=== PATIENT | female | born 1970 | race Caucasian/White ===

== ENCOUNTER 2024-05-07 11:24 | Emergency (ER) | payer OTHER, SELFPAY ==
[2024-05-07 11:24] VITALS: BP 126/80; PULSE 82; RESP 14; TEMP 36.2; O2SAT 98; BMI 27.3
[2024-05-07] MEDS: morphine 10 MG/ML Syringe IM (13:19)
[2024-05-07] MEDS: Ondansetron ODT 4 MG Tablet PO (13:19)
--- NOTE | 2024-05-07 13:25 | EDS_ITS ---
HPI History of Present Illness Chief Complaint: Back Detail of Chief Complaint: Right upper back pain after moving. Informant: patient and family Onset/Context/Timing Onset: Days Context: Gradual Onset Injury: lifting Timing: Continuous Location: Thoracic Current Severity: Mild Maximum Severity: Moderate Worsened by: improves with Movement Relieved by: Nothing Associated Symptoms Associated Symptoms: Negative for Numbness, Tingling, Radiation to Right Leg, Radiation to Left Leg, Fever, Abdominal Pain, Dysuria, Unable to Ambulate, Unable to Transfer, Urinary Retention, Urinary Incontinence, Constipation or Fecal Incontinence Narrative Narrative: 53-year-old female recently moved from [place] to this area. They are moving a lot of furniture. She has had right upper back and shoulder pain for about a week. Denies any fall or trauma. Worse with movement. Denies any prior back surgery or neck surgery. Denies any weakness in her upper extremities. Prior similar symptoms: No Recent Illness/Hospitalization: No PFSH PFSH Home Medications ?Medication ?Instructions ?Recorded ?Last Taken ?Type metaxalone 800 mg tablet 800 mg PO TID PRN muscle pain 7 05/07/24 Unknown Rx days #21 tabs Allergy/AdvReac Type Severity Reaction Status Date / Time amoxicillin AdvReac Hives Verified 05/07/24 11:27 ciprofloxacin (From Cipro) AdvReac HIVES Verified 05/07/24 11:27 mushroom (mushrooms) AdvReac Hives Verified 05/07/24 11:27 ROS ROS ED ROS Narrative Denies recent illness. Constitutional Constitutional ED: Denies fever(s) Eyes Eyes: Denies blurry vision ENT ENT ED: Denies ear pain Cardiovascular Cardiovascular: Denies chest pain Respiratory/Chest Respiratory/Chest: Denies dyspnea Gastrointestinal Gastrointestinal: Denies abdominal pain Genitourinary Genitourinary ED: Denies dysuria or hematuria Musculoskeletal Musculoskeletal: Reports back pain; Denies arthralgias or myalgias Integumentary Denies abscess Neurologic Neurologic: Denies headache(s) Psychiatric Psychiatric: Denies anxiety or depression Endocrine Endocrinology: Denies cold intolerance Hematologic/Lymphatic Hematologic/Lymphatic: Denies easy bleeding Allergic/Immunologic Allergic/Immunologic ED: Denies mouth swelling EXAM Physical Exam Narrative Exam Narrative: Well-appearing middle-aged female. Vital signs stable afebrile. H EENT exam unremarkable. Neck nontender no lymphadenopathy. Lungs clear to auscultation bilaterally. Heart regular rhythm no murmur. Chest wall nontender. Abdomen so ft nontender. Moving all 4 extremities. Neurovascularly intact. Nontender no edema. Normal local company tanker driver strength. Right upper back thoracic side around her scapular and shoulder she is soft tissue tenderness consistent with myofascial strain and spasm. No bruising. No redness. No signs of trauma or deformity. Neurologically she is awake and alert with no focal motor or sensory deficits. Const Vital Signs: 05/07/24 11:24 Temperature 97.1 F L Temperature Source Temporal Pulse Rate 82 Respiratory Rate 14 Blood Pressure 126/80 H Blood Pressure Mean 95 Pulse Ox 98 Oxygen Delivery Method Room Air Positive well nourished and well developed; Negative for cachectic, contractures or unkempt General Appearance ED: well developed; Negative for unkempt, cachectic, contractures, NAD or pallor Nutritional Appearance: Negative for cachectic HEENT Reports moist mucous membranes Negative for trauma or tenderness Eyes PERRL and EOMs intact bilaterally Neck no lymphadenopathy, supple and no JVD Resp normal respiratory effort and clear to auscultation bilaterally Cardio regular rate, regular rhythm, S1 normal heart sound, S2 normal heart sound and no murmurs GI normal to inspection, nondistended, normoactive bowel sounds, soft to palpation, non-tender, non-distended and no masses Palpation: Negative for tender, guarding or rebound tenderness present Back/Spine no thoracic nor lumbar tenderness; Negative for normal to inspection Back/Spine Narrative: Soft tissue tenderness right upper back consistent with muscle spasm and strain. No spine tenderness. Thoracic Spine / Upper Back: paraspinal muscle tenderness Extremity normal to inspection and no clubbing, cyanosis or edema General Extremety ED: Negative for edema or tenderness General Extremity: Negative for edema Neuro oriented x3 and no sensory deficits noted Sensorium / Orientation: alert; Negative for confused, lethargic or stuporous Motor Exam: strength 5/5 throughout Psych mental status grossly normal Appearance: Negative for unkempt Attitude: No agitated Mood & Affect: Negative for depressed Skin no rashes or lesions noted and no wounds General Skin Exam: Negative for jaundice or pallor Lesions: No lesion noted Rashes: No rashes noted MDM MDM MDM Narrative Medical decision making narrative: 53-year-old female after moving has right upper back pain consistent myofascial strain and spasm. Time injection of morphine. Discharged home with a prescription for Skelaxin. Outpatient follow-up with primary care physician if not improving. Motrin for pain and inflammation. Discharge Plan Triage Chief Complaint: Back ED Provider: Monico Gabriel Dx/Rx/DC Orders Clinical Impression: Back pain, Back muscle spasm Instructions: ED Back Spasm, No Trauma Prescriptions: New metaxalone 800 mg tablet 800 mg PO TID PRN (Reason: muscle pain) 7 Days Qty: 21 0RF Referrals: Graham Pemberton MD [Med Staff - [employer]ist] - As Needed Activity Restrictions/Additional Instructions: Hot shower, warm bath, hot tub and massage. You have muscle spasm in your right back. Motrin and Tylenol for pain and inflammation. The muscle relaxant Skelaxin 3 times a day. It will take several days if you start feeling better. You were given an IM dose of morphine today. Do not drive today. Print Language: American Disposition Disposition: Home, Self Care
[2024-05-07 14:07] VITALS: BP 105/77; PULSE 67; RESP 16; TEMP 36.9; O2SAT 99
== END 2024-05-07 14:10 | disposition home or self-care (01) ==
PROVIDERS: Emergency Provider Emergency Medicine; Visit Provider Emergency Medicine
DX: M62.830 Muscle spasm of back (principal); M54.9 Dorsalgia, unspecified; X50.0XXA Overexertion from strenuous movement or load, initial encounter; Y93.E6 Activity, residential relocation
CPT/HCPCS: 96372; 99282

== ENCOUNTER 2024-05-22 15:21 | Emergency (ER) | payer OTHER, SELFPAY ==
[2024-05-22 15:22] VITALS: BP 128/84; PULSE 82; RESP 18; TEMP 36.4; O2SAT 98; BMI 27.6
[2024-05-22] MEDS: oxyCODONE 5 MG Tablet PO (17:19)
[2024-05-22] MEDS: Ketorolac 30 MG/ML Syringe IM (17:21)
[2024-05-22] MEDS: Orphenadrine 60 MG/2 ML Ampul IM (17:23)
--- NOTE | 2024-05-22 17:24 | EX.ED.DYSGE1 ---
HPI <FRANKI Donahue - Last Filed: 05/22/24 18:25> History of Present Illness Chief Complaint: Back Narrative Narrative: 53-year-old female with history of atrial fibrillation, hypertension hyperlipidemia who presents to the emergency department for pain to her upper back. Patient states [place], she has been moving a lot of boxes, she was seen here a couple weeks ago for something similar. Patient states she did a lot of work over the weekend, and after work today, she is having spasms to her upper back. She denies any shortness of breath, denies any chest pain. Denies any fall or traumatic injury. PFSH <FRANKI Donahue - Last Filed: 05/22/24 18:25> [facility] Home Medications ?Medication ?Instructions ?Recorded ?Last Taken ?Type metaxalone 800 mg tablet 800 mg PO TID PRN muscle pain 7 05/07/24 Unknown Rx days #21 tabs cyclobenzaprine 10 mg tablet 10 mg PO TID PRN Muscle Spasm #20 05/22/24 Unknown Rx TABLETS lidocaine 5 % topical patch 1 patch topical DAILY #15 ea 05/22/24 Unknown Rx (Lidocan III) naproxen 500 mg tablet (Naprosyn) 500 mg PO BID PRN pain #20 tabs 05/22/24 Unknown Rx oxycodone-acetaminophen 5 mg-325 1 tab PO Q8H PRN pain 3 days #8 05/22/24 Unknown Rx mg tablet (Percocet) tabs Allergy/AdvReac Type Severity Reaction Status Date / Time amoxicillin AdvReac Hives Verified 05/22/24 15:24 ciprofloxacin (From Cipro) AdvReac HIVES Verified 05/22/24 15:24 mushroom (mushrooms) AdvReac Hives Verified 05/22/24 15:24 Social History Smoking Status: Never smoker ROS <FRANKI Donahue - Last Filed: 05/22/24 18:25> ROS ED ROS Narrative Constitutional: Negative for fever, chills, weight loss, weakness Eyes: Negative for vision loss, vision change, double vision ENT: Negative for any sore throat, ear pain, congestion Cardiovascular: Negative for any chest pain, tightness, palpitations Respiratory: Negative for any cough, sputum production, hemoptysis, dyspnea, dyspnea on exertion, orthopnea Gastrointestinal: Negative for any abdominal pain, nausea, vomiting, diarrhea, constipation, blood in stool, blood in vomit : Negative for any urinary frequency, dysuria, retention, blood in urine Muscle skeletal: Negative for any neck pain. Positive for pain to the upper back Neurological: Negative for any headache, syncope, dizziness Skin: Negative for any rashes, itching, abrasions, lacerations Psychiatric: Negative for any depression, anxiety, stress, suicidal ideation, homicidal ideation Hematologic: Negative for any excessive bruising, easy bleeding EXAM <Vel Wallace NP-[place] - Last Filed: 05/22/24 18:25> Physical Exam Narrative Exam Narrative: Vital signs reviewed. Patient on my initial evaluation was laying on her right side, she was able to get up. Pain is out of proportion when touching any part of her upper back HEET: Head normocephalic atraumatic, TMs clear bilaterally. Posterior pharynx is clear, moist mucous membranes. Nares clear bilaterally. Neck: Supple with no lymphadenopathy or tenderness. No signs of meningismus. Cardiac: Regular rate and rhythm no murmurs gallops or rubs, equal peripheral pulses bilaterally. Respiratory: Lungs clear to auscultation bilaterally. No chest tenderness. Abdomen: Soft, nontender, nondistended. No abdominal bruit or pulsatile masses. No hepatosplenomegaly Extremities: No peripheral edema, no signs of gross trauma or deformity. Active full range of motion of all extremities. Neuro: Cranial nerves II through XII intact, no focal neurological deficits. Skin: Clean dry and intact with no rash, purpura, petechiae, vesicles or pustules. Backs/flank: No CVA tenderness, no midline spinal tenderness, no deformity. Pain to her upper back, just medial to her shoulder blades, no pain to the cervical thoracic spine midline. Full range of motion of upper extremities. Psych: Normal mood and affect. No SI, HI or acute psychosis. Const Vital Signs: 05/22/24 15:22 05/22/24 18:31 Temperature 97.5 F L 97.9 F Temperature Source Temporal Pulse Rate 82 86 Respiratory Rate 18 16 Blood Pressure 128/84 H 126/76 H Blood Pressure Mean 98 92 Pulse Ox 98 99 Oxygen Delivery Method Room Air <Dr. Jerson Squires DO - Last Filed: 05/22/24 18:36> Physical Exam Const Vital Signs: 05/22/24 15:22 05/22/24 18:31 Temperature 97.5 F L 97.9 F Temperature Source Temporal Pulse Rate 82 86 Respiratory Rate 18 16 Blood Pressure 128/84 H 126/76 H Blood Pressure Mean 98 92 Pulse Ox 98 99 Oxygen Delivery Method Room Air [facility] <FRANKI Donahue - Last Filed: 05/22/24 18:25> [facility] Treatment and Re-Evaluation :: Differential diagnosis includes however is not limited to: Muscle strain, community-acquired pneumonia, cervical strain, thoracic strain Patient appears generally well, vital signs are stable, patient is nontoxic-appearing. Patient presents to the [facility] for worsening pain to her upper back. Physical examination is consistent with muscle skeletal strain. Patient does state to have spasm as well. Physical examination shows no red flag signs. Patient will receive oral Percocet, IM Toradol, IM Norflex. On reevaluation, the patient was feeling better. At this time, patient be discharged home for muscle skeletal pain. Patient given a short course of pain medicine, naproxen, Flexeril, as well as some Lidoderm patches. She is instructed to follow-up outpatient and to continue to perform gentle stretching, ice and heat. She was given return precautions, all questions answered, stable for discharge. <Dr. Jerson Squires DO - Last Filed: 05/22/24 18:36> [facility] History & Record Review Discussion w/independent historian: Patient and Family Treatment and Re-Evaluation :: Differential diagnosis includes however is not limited to: Muscle strain, community-acquired pneumonia, cervical strain, thoracic strain Patient appears generally well, vital signs are stable, patient is nontoxic-appearing. Patient presents to the [facility] for worsening pain to her upper back. Physical examination is consistent with muscle skeletal strain. Patient does state to have spasm as well. Physical examination shows no red flag signs. Patient will receive oral Percocet, IM Toradol, IM Norflex. On reevaluation, the patient was feeling better. At this time, patient be discharged home for muscle skeletal pain. Patient given a short course of pain medicine, naproxen, Flexeril, as well as some Lidoderm patches. She is instructed to follow-up outpatient and to continue to perform gentle stretching, ice and heat. She was given return precautions, all questions answered, stable for discharge. I have personally performed a face to face assessment of the patient and have reviewed the KOLBY Note. I performed a substantive portion of the visit including all aspects of the following. My vaughn findings include: History is 53-year-old female presenting to the emergency room with upper back pain. Pain is worse with movement and touch. She has been moving from [place] to the area. She has been moving heavy boxes and furniture. She was seen previously in the emergency room and referred to primary care but is not been able to secure a primary care follow-up yet. No known direct trauma. Exam is upper back tenderness to palpation. No neurologic deficits no tissue texture changes to suggest underlying infection Medical Decison Making I believe this is muscular in nature. Patient is to rest and use heat we talked about various treatment modalities she can do at home and also through direct care professional. We can provide pain medication and muscle relaxants. Discharge Plan Triage Chief Complaint: Back ED Midlevel Provider: Vel Wallace ED Provider: Jerson Squires Dx/Rx/DC Orders Clinical Impression: Acute thoracic myofascial strain Instructions: ED Back Sprain/Strain Prescriptions: New naproxen [Naprosyn] 500 mg tablet 500 mg PO BID PRN (Reason: pain) Qty: 20 0RF oxycodone-acetaminophen [Percocet] 5-325 mg tablet 1 tab PO Q8H PRN (Reason: pain) 3 Days Qty: 8 0RF cyclobenzaprine 10 mg tablet 10 mg PO TID PRN (Reason: Muscle Spasm) Qty: 20 0RF lidocaine [Lidocan III] 5 % adhesive patch,medicated 1 patch topical DAILY Qty: 15 0RF Rx Instructions: leave on most painful area for up to 12 hrs No Action metaxalone 800 mg tablet 800 mg PO TID PRN (Reason: muscle pain) 7 Days Qty: 21 0RF Primary Care Provider: Care Physician,No Primary Referrals: Andreea Diez DC [Non-Staff -Ordering Privileges] - As Needed (For chiropractic medicine) Care Physician,No Primary [Primary Care Provider] - Activity Restrictions/Additional Instructions: Perform gentle stretching, ice and heat. Print Language: Kazakh Disposition Disposition: Home, Self Care Discharge Date/Time: 05/22/24 18:31
[2024-05-22 18:31] VITALS: BP 126/76; PULSE 86; RESP 16; TEMP 36.6; O2SAT 99
== END 2024-05-22 18:31 | disposition home or self-care (01) ==
PROVIDERS: Emergency Provider Emergency Medicine; Visit Provider Emergency Medicine
DX: S29.019A Strain of muscle and tendon of unspecified wall of thorax, initial encounter (principal); I48.91 Unspecified atrial fibrillation; I10 Essential (primary) hypertension; E78.5 Hyperlipidemia, unspecified; X50.0XXA Overexertion from strenuous movement or load, initial encounter
CPT/HCPCS: 96372; 99283

== ENCOUNTER 2024-08-04 15:10 | Emergency (ER) | payer OTHER, SELFPAY ==
[2024-08-04 15:10] VITALS: BP 123/73; PULSE 89; RESP 16; TEMP 36.9; O2SAT 100; BMI 26.1
--- NOTE | 2024-08-04 15:47 | ED.VIS.BACK ---
HPI History of Present Illness Chief Complaint: Back Onset/Context/Timing Onset: Month(s) Context: Gradual Onset Timing: Continuous Quality: Sharp, Aching and Burning Location: Thoracic Worsened by: improves with Nothing Relieved by: Nothing Associated Symptoms Associated Symptoms: Numbness, Tingling and Abdominal Pain; Negative for Radiation to Right Leg, Radiation to Left Leg, Fever, Dysuria, Unable to Ambulate, Unable to Transfer, Urinary Retention, Urinary Incontinence, Constipation or Fecal Incontinence Narrative Narrative: The patient presents with back pain that has been getting worse over the past month. Patient states she was recently diagnosed with lung cancer with metastasis to the bone. Patient states she was told she had a metastatic lesion in her thoracic area. Patient describes her pain as sharp, aching, and burning. Patient states it is over the right mid thoracic area. Patient states it is better when she is able to curl up into a ball. Patient admits to some numbness and tingling into her fingers. Patient denies any weakness. Patient denies any radiation of the pain into her legs. Patient states the pain does radiate into her abdomen. Patient denies any fevers or chills. Patient admits to some nausea but denies any vomiting. Patient denies any bowel or bladder changes. Patient denies any saddle anesthesia. Patient had an MRI yesterday and is scheduled for a PET scan tomorrow. [facility] Medical History (Updated 08/04/24 @ 18:[address] Kareem Aranda, DO) Atrial fibrillation Fibromyalgia Osteoarthritis Lung cancer metastatic to bone Home Medications ?Medication ?Instructions ?Recorded ?Last Taken ?Type metaxalone 800 mg tablet 800 mg PO TID PRN muscle pain 7 05/07/24 Unknown Rx days #21 tabs cyclobenzaprine 10 mg tablet 10 mg PO TID PRN Muscle Spasm #20 05/22/24 Unknown Rx TABLETS lidocaine 5 % topical patch 1 patch topical DAILY #15 ea 05/22/24 Unknown Rx (Lidocan III) naproxen 500 mg tablet (Naprosyn) 500 mg PO BID PRN pain #20 tabs 05/22/24 Unknown Rx oxycodone-acetaminophen 5 mg-325 1 tab PO Q8H PRN pain 3 days #8 05/22/24 Unknown Rx mg tablet (Percocet) tabs oxycodone-acetaminophen 5 mg-325 1 tab PO Q8H PRN pain 3 days #10 08/04/24 Unknown Rx mg tablet (Percocet) tabs Allergy/AdvReac Type Severity Reaction Status Date / Time amoxicillin AdvReac Hives Verified 08/04/24 15:10 ciprofloxacin (From Cipro) AdvReac HIVES Verified 08/04/24 15:10 mushroom (mushrooms) AdvReac Hives Verified 08/04/24 15:10 Surgical History History of cardiac ablation for atrial fibrillation Hx of gastric bypass Hx of cholecystectomy History of hysterectomy Social History Smoking Status: Current some day smoker tobacco type: cigarettes and smokeless tobacco ROS ROS ED Constitutional Constitutional ED: Denies chills or fever(s) Eyes Eyes: Reports blurry vision; Denies change in vision ENT ENT ED: Denies rhinorrhea or sore throat Cardiovascular Cardiovascular: Denies chest pain or palpitations Respiratory/Chest Respiratory/Chest: Reports cough; Denies dyspnea Gastrointestinal Gastrointestinal: Reports abdominal pain and nausea; Denies diarrhea, melena or vomiting Genitourinary Genitourinary ED: Denies dysuria or hematuria Musculoskeletal Musculoskeletal: Reports back pain; Denies neck pain Integumentary Denies abscess or rash Neurologic Neurologic: Denies headache(s) or weakness Allergic/Immunologic Allergic/Immunologic ED: Denies mouth swelling or urticaria EXAM Physical Exam Const Vital Signs: 08/04/24 15:10 Temperature 98.5 F Temperature Source Oral Pulse Rate 89 Respiratory Rate 16 Blood Pressure 123/73 H Blood Pressure Mean 89 Pulse Ox 100 Oxygen Delivery Method Room Air Positive well nourished and well developed General Appearance ED: well developed and NAD HEENT Reports moist mucous membranes Neck supple and no JVD Resp normal respiratory effort and clear to auscultation bilaterally Cardio regular rate and regular rhythm GI soft to palpation Palpation: tender RLQ and RUQ; Negative for guarding or rebound tenderness present Back/Spine Back/Spine Narrative: There is tenderness over the right mid thoracic paraspinal area. There is no bony crepitance or step-off noted. There is no midline tenderness. Thoracic Spine / Upper Back: paraspinal muscle tenderness right Extremity normal to inspection General Extremety ED: Negative for edema or tenderness General Extremity: Negative for edema Neuro oriented x3 and no sensory deficits noted Sensorium / Orientation: alert Motor Exam: strength 5/5 throughout Psych mental status grossly normal Skin no rashes or lesions noted MDM MDM MDM Narrative Medical decision making narrative: Differential diagnosis includes metastatic disease, occult fracture, pathologic fracture, pneumonia, pneumothorax, cardiac dysrhythmia, cardiac ischemia, electrolyte abnormality, and muscle strain. EKG will be obtained to assess for cardiac dysrhythmia and cardiac ischemia. CT scan of the chest, abdomen, and pelvis will be obtained to assess for metastatic disease, bowel obstruction, and colitis. CBC will be obtained to assess for leukocytosis and anemia. Comprehensive metabolic profile will be obtained to assess for hepatic function, renal function, and electrolyte abnormality. Urinalysis will be obtained to assess for urinary tract infection and hematuria. Lab Data Attestation: I reviewed the patient's lab results. Lab results narrative: CBC was reviewed. There is a slight anemia with a hemoglobin of 11.9 and hematocrit of 36.8. The remainder is within normal limits. Comprehensive metabolic profile was reviewed and was essentially within normal limits. Lipase reviewed and was elevated at 234. Urinalysis was reviewed. There is no evidence of urinary tract infection or hematuria. Labs: Laboratory Results - last 24 hr 08/04/24 16:17 WBC 7.0 RBC 4.20 Hgb 11.9 L Hct 36.8 L MCV 87.6 MCH 28.3 MCHC 32.3 RDW Std Deviation 41.8 RDW Coeff of Freddy 13.0 Plt Count 300 MPV 9.6 Sodium 138 Potassium 3.7 Chloride 105 Carbon Dioxide 29.0 Anion Gap 4 L BUN 20 H Creatinine 0.58 Estim Creat Clear Calc 112.41 Est GFR (MDRD) Af Amer 139 Est GFR (MDRD) Non-Af 115 BUN/Creatinine Ratio 34.5 H Glucose 88 Calcium 9.1 Total Bilirubin 0.30 AST 11 L ALT 9 L Alkaline Phosphatase 114 Total Protein 6.9 Albumin 3.1 L Globulin 3.8 Albumin/Globulin Ratio 0.8 L Lipase 234 H Urine Color Yellow Urine Clarity Sl. Cloudy Urine pH 6.0 Ur Specific [place] 1.020 Urine Protein 30 H Urine Glucose (UA) Normal Urine Ketones 5 H Urine Occult Blood Negative Urine Nitrite Negative Urine Bilirubin 1 H Urine Urobilinogen 1 H Ur Leukocyte Esterase 25 H Urine RBC 0-5 SEEN Urine WBC 0-5 SEEN Ur Squamous Epith Cells 0-5 SEEN Urine Bacteria 1+ Urine Mucus 3+ Radiography Diagnostic Testing: Clinical Impression(s) from Imaging Studies Chest/Abdomen/Pelvis CT 08/04/24 15:59 IMPRESSION: Slightly fluid distended left-sided small intestine. Partial or intermittent obstruction cannot be excluded. Lytic lesions of T8 and T9. Mesenteric adenitis. Electronically Signed: Hari Page DO at 17:25 EST Reading Location ID and State: [facility] / [place] Tel [phone], Service support , CT scan of the chest, abdomen, and pelvis was obtained. There is a slightly distended left-sided small intestine. There are lytic lesions of T8 and T9. There is evidence of mesenteric adenitis. There is no free air or free fluid. This was interpreted by the radiologist and was also independently reviewed by myself. EKG Initial EKG: Attestation: I personally reviewed and interpreted this EKG as follows: Interpretation: Sinus Rhythm (77) and No Acute Injury Pattern Comments: EKG was obtained. On my independent interpretation, it showed a normal sinus rhythm with a rate of 77. [place] interval, QRS interval, and QTc intervals were all normal. [place] was normal. There are no acute ST or T wave changes. Prior EKG tracings: not available for review Prior: No Prior Treatment and Re-Evaluation Narrative: Patient was given IV fluids, Zofran, and morphine. Patient was given repeat doses of Dilaudid. They did recommend admission to the hospital. Patient states she wants to go home. Patient states she has a PET scan scheduled for tomorrow and does not want to miss that. Patient is requesting to be discharged home. Patient was advised to return to the emergency department if worse in any way. Patient was instructed to stay on a clear liquid diet. Patient was given a prescription for a short course of Percocet. Patient was instructed to follow-up with her PET scan tomorrow. Patient was advised that her pain could get worse. Patient understands and is agreeable with the plan. All questions were answered. Discharge Plan Triage Chief Complaint: Back ED Provider: Kareem Aranda Dx/Rx/DC Orders Clinical Impression: Acute pancreatitis, Lung cancer metastatic to bone, Fibromyalgia Instructions: ED Pancreatitis Prescriptions: New oxycodone-acetaminophen [Percocet] 5-325 mg tablet 1 tab PO Q8H PRN (Reason: pain) 3 Days Qty: 10 0RF No Action naproxen [Naprosyn] 500 mg tablet 500 mg PO BID PRN (Reason: pain) Qty: 20 0RF oxycodone-acetaminophen [Percocet] 5-325 mg tablet 1 tab PO Q8H PRN (Reason: pain) 3 Days Qty: 8 0RF cyclobenzaprine 10 mg tablet 10 mg PO TID PRN (Reason: Muscle Spasm) Qty: 20 0RF lidocaine [Lidocan III] 5 % adhesive patch,medicated 1 patch topical DAILY Qty: 15 0RF Rx Instructions: leave on most painful area for up to 12 hrs metaxalone 800 mg tablet 800 mg PO TID PRN (Reason: muscle pain) 7 Days Qty: 21 0RF Primary Care Provider: Rosalba Soto Referrals: Rosalba Soto MD [Primary Care Provider] - 3-5 Days Print Language: Macedonian Disposition Disposition: Home, Self Care
--- NOTE | 2024-08-04 15:59 | EKG12_ITS ---
Test Reason : BACK Blood Pressure : */* mmHG Vent. Rate : 77 BPM Atrial Rate : 77 BPM P-R Int : 148 ms QRS Dur : 88 ms QT Int : 378 ms P-R-T Axes : 55 46 39 degrees QTcB Int : 427 ms Normal sinus rhythm Normal ECG Confirmed by ABDIAZIZ VELÁSQUEZ, MICHAEL ([id number]), food editor ARRON ROWELL ([id number]) on 08/07/2024 6:38:21 AM Referred By: Confirmed By: MICHAEL FREED MD
--- NOTE | 2024-08-04 15:59 | CT_ITS ---
STUDY: CT CHEST, ABDOMEN T PELVIS WITH CONTRAST REASON FOR EXAM: Female, 53 years old. Back pain, abdominal pain. NEW DIAGNOSIS OF LUNG CANCER WITH BONE METS. PRIOR MARICARMEN,HYSTER,GASTRIC BYPASS RADIATION DOSAGE (If Supplied By Facility): CTDIvol = ( 15.08 ) mGy, DLP = ( 1334.75 ) mGycm TECHNIQUE: Transaxial imaging was performed following intravenous administration of IV 100mL Isovue-300. The protocol utilizes one or more of the following dose reduction techniques: automated exposure control, adjustment of mA and/or kV according to patient size,and/or use of iterative reconstruction technique. COMPARISON: FINDINGS: CHEST Right pulmonary calcified granuloma. Probable focal scarring in the right middle lobe. There is no demonstrated pleural abnormality. Normal heart and pericardium. Granulomatous calcifications in the mediastinum and the hilar regions. Normal unenhanced pulmonary arteries. Normal aorta arch and descending thoracic aorta. Lytic lesions of T8 and T9. ABDOMEN Small left hepatic cyst in the liver. Status post cholecystectomy. Dilatation of the biliary system. Slightly enlarged spleen with a 1 cm hypoattenuated nodule. Normal pancreas. There are slightly prominent mesenteric nodes suggesting mesenteric adenitis. There is slight prominence of the left adrenal gland with possible underlying nodule. Normal right kidney. Normal left kidney. Prior surgery of the stomach. Slightly fluid distended left-sided small intestine. Partial or intermittent obstruction cannot be excluded. Fecal retention in the colon. The appendix is visualized and appears normal. Normal abdominal aorta. Normal inferior vena cava. Normal retroperitoneum. Normal abdominal wall. Normal osseous structures. PELVIS Normal urinary bladder. Normal visualized small intestine. Normal visualized colon. There is no pelvic fluid. There is no pelvic lymphadenopathy or mass lesion. Normal visualized pelvic arteries. CT/CT Chest, Abd, Pel w/Contrast IMPRESSION: Slightly fluid distended left-sided small intestine. Partial or intermittent obstruction cannot be excluded. Lytic lesions of T8 and T9. Mesenteric adenitis. Electronically Signed: Hari Page DO at 17:25 EST ,
[2024-08-04] MEDS: Ondansetron 4 MG/2 ML Vial IV (16:22)
[2024-08-04] MEDS: Morphine 4 MG/ML Syringe IV (16:23)
[2024-08-04] MEDS: 0.9% Normal Saline (1000mL) 1,000 ML 1000 ML IV (16:25)
[2024-08-04 16:34] LABS: Hematocrit 36.8 % (37-47); Hemoglobin 11.9 g/dL (12.0-15.0); Mean Corp Hgb Conc 32.3 g/dL (32-36); Mean Corpuscular Hgb 28.3 pg (27.0-32.0); Mean Corpuscular Volume 87.6 fL (81-99); Mean Platelet Vol. 9.6 fl (6.2-12.0); Platelet Count 300 K/mm3 (150-450); RBC Distribution Width SD 41.8 fl (35.1-43.9)
[2024-08-04 16:36] LABS: Color, Urine Yellow (Yellow); Glucose, Dipstick Normal (Normal); Ketone-Dipstick 5 mg/dl (Negative); Leukocyte Esterase-Dipstick 25 /ul (Negative); Nitrite-Dipstick Negative (Negative); Occult Blood-Urine Negative /ul (Negative); Protein-Dipstick 30 mg/dl (Negative); Urine Clarity Sl. Cloudy (Clear); Urine Urobilinogen 1 mg/dl (Normal)
[2024-08-04 16:38] LABS: Urine Bilirubin Dipstick 1 mg/dL (Negative)
[2024-08-04 16:46] LABS: Bacteria 1+ /hpf (None Seen); Mucous, Urine 3+ /hpf (<or=2+); Red Blood Cells-Urine 0-5 SEEN /hpf (0-5); Squamous Epithelial Cells - UA 0-5 SEEN /hpf (5-10); White Blood Cells 0-5 SEEN /hpf (0-5)
[2024-08-04 16:53] LABS: ALB/GLOB Ratio 0.8 RATIO (0.9-2.4); AST(SGOT) 11 U/L (15-37); Alanine Aminotransfer ALT/SGPT 9 U/L (13-56); Albumin, Serum 3.1 g/dL (3.2-5.0); Alkaline Phosphatase 114 U/L (45-117); Anion Gap 4 (5-15); BUN 20 mg/dL (7-18); BUN/Creat Ratio 34.5 RATIO (10-20); Calcium,Total 9.1 mg/dL (8.5-10.1); Chloride 105 mmol/L (98-107); Creatinine, Serum 0.58 mg/dL (0.55-1.02); EST Glomerular Filtration Rate 115 mL/min (>60); Est Glom Filt Rate - Afr Amer 139 mL/min (>60); Estimated Creatinine Clearance 112.41 ml/min; Globulin 3.8 g/dL (2.2-4.2); Glucose 88 mg/dL (74-106); Lipase 234 U/L (13-75); Potassium 3.7 mmol/L (3.5-5.1); Protein, Total 6.9 g/dL (6.4-8.2); Sodium Level 138 mmol/L (136-145)
[2024-08-04] MEDS: HYDROmorphone 1 MG/ML Syringe 0.5 MG IV ×2 (17:24→18:18)
[2024-08-04 18:35] VITALS: PULSE 88; RESP 16; O2SAT 98
== END 2024-08-04 18:47 | disposition home or self-care (01) ==
PROVIDERS: Emergency Provider Emergency Medicine; PCP Internal Medicine; Visit Provider Emergency Medicine
DX: K85.90 Acute pancreatitis without necrosis or infection, unspecified (principal); C79.51 Secondary malignant neoplasm of bone; C34.90 Malignant neoplasm of unspecified part of unspecified bronchus or lung; R11.0 Nausea; M79.7 Fibromyalgia; Z90.710 Acquired absence of both cervix and uterus; F17.210 Nicotine dependence, cigarettes, uncomplicated; Z90.49 Acquired absence of other specified parts of digestive tract; Z98.84 Bariatric surgery status
CPT/HCPCS: 71260; 74177; 80053; 81001; 83690; 85027; 93005; 96361; 96374; 96375; 96376; 99284; Q9967; A4216; J2405

== ENCOUNTER 2024-08-23 10:57 | Emergency (ER) | payer BC, SELFPAY ==
[2024-08-23] VITALS (7 sets, daily range): BP systolic 120–156; BP diastolic 52–85; PULSE 72–92; RESP 14–18; TEMP 36.2–36.6; O2SAT 98–100; BMI 26.9
--- NOTE | 2024-08-23 11:11 | EKG12_ITS ---
Test Reason : CP Blood Pressure : */* mmHG Vent. Rate : 85 BPM Atrial Rate : 85 BPM P-R Int : 142 ms QRS Dur : 92 ms QT Int : 378 ms P-R-T Axes : 76 60 67 degrees QTcB Int : 449 ms Normal sinus rhythm Normal ECG Confirmed by Emmanuel Brizuela ([id number]), book editor HAI PANG ([id number]) on 08/24/2024 10:19:16 AM Referred By: RAJIV Confirmed By: Emmanuel Brizuela
--- NOTE | 2024-08-23 11:18 | CT_ITS ---
STUDY: CTA CHEST REASON FOR EXAM: Female, 53 years old. CP w/ Lung ca hx w/ mets RADIATION DOSAGE (If Supplied By Facility): CTDIvol = ( 7.09 ) mGy, DLP = ( 218.68 ) mGycm TECHNIQUE: The examination was performed with the intravenous administration of IV 100mL Isovue-370. Post-processing of the angiographic images was performed, with multiplanar reformation and 3D reconstruction. Individualized dose optimization techniques were used for this CT. COMPARISON: Comparison is made with prior study dated August 04, 2024 FINDINGS: Several intraluminal filling defects are seen in the branches of the right middle lobe pulmonary artery in keeping with pulmonary embolism. Normal thoracic aorta and visualized great vessels. There is no demonstrated aortic dissection. Normal heart and pericardium. Mediastinal lymphadenopathy. Normal hilar regions. Normal visualized trachea and bronchi. Emphysematous changes. There is a 1.5 cm bulla in the anterior lateral aspect of the right upper lobe. There is a 1.2 cm x 1 cm nodule in the anterior aspect of the right upper lobe as seen on axial image #140. Calcified granuloma in the lateral aspect of the right middle lobe. Focal scarring at the lung bases. Normal pulmonary parenchyma. Normal pleura. Normal chest wall structures. Lytic destruction of the anterior aspect of the T8 and T9 vertebrae consistent with metastasis. Small gallstones are seen along the dependent portion of the gallbladder lumen. Findings suggestive of a para-aortic lymphadenopathy in the upper abdomen. CT/CTA Chest W/WO Contrast IMPRESSION: Pulmonary emboli in branches of the right middle lobe pulmonary artery as described. 1.2 cm x 1 cm nodule in the anterior aspect of the right upper lobe in keeping with the neoplastic process. Small gallstones. Destruction of the T8 and T9 vertebrae. Electronically Signed: Familia Shah MD at 12:16 EST ,
--- NOTE | 2024-08-23 11:20 | ED.VIS.CHEST ---
HPI History of Present Illness Chief Complaint: Chest Pain Informant: patient Onset/Context/Timing Onset: Days Activity at onset: gradual Timing: Continuous (Feels like someone is ripping my ribs out.) Quality: Positive for Aching Location: Right Chest and Left Chest Current Severity: Moderate Maximum Severity: Moderate Worsened By: Nothing Relieved By: Nothing Associated Symptoms: Positive for Cough; Negative for Nausea, Vomiting, Diaphoresis, Dyspnea, Fever, Lightheadedness, Acid Reflux or Palpitations Narrative Narrative: 53-year-old female history of 1 seizure with bony mets for which she is being treated [facility]. For the last 5 months or so she has lived in this area and is trying to transfer to a new oncologist because it is a 4-[address] to [facility]. She also has a history of A-fib. She is on no blood thinners. States that she has had chest pain since Wednesday. She has chronic chest pain due to bony mets. States it is worse. Denies any hemoptysis. No history of DVT or PE. No change or worsening of shortness of breath. Denies any leg pain or swelling. No cardiac history. Prior Similar Symptoms: Yes Recent Illness/Hospitalization: No CVD Risk Factors: Negative for Diabetes PE Risk Factors: Positive for Cancer; Negative for Recent Travel/Surgery, Recent Immobilization, Prior DVT or PE or OCP + Smoking + >/=35 TAD Risk Factors: Negative for Marfan's Syndrome [facility] Medical History Atrial fibrillation Fibromyalgia Osteoarthritis Lung cancer metastatic to bone Home Medications ?Medication ?Instructions ?Recorded ?Last Taken ?Type metaxalone 800 mg tablet 800 mg PO TID PRN muscle pain 7 05/07/24 Unknown Rx days #21 tabs oxycodone-acetaminophen 5 mg-325 1 tab PO Q8H PRN pain 3 days #8 05/22/24 Unknown Rx mg tablet (Percocet) tabs oxycodone-acetaminophen 5 mg-325 1 tab PO Q8H PRN pain 3 days #10 08/04/24 Unknown Rx mg tablet (Percocet) tabs apixaban 5 mg (74 tabs) tablets in See Rx Instructions .Route 08/23/24 Unknown Rx a dose pack (Eliquis DVT-PE Treat .COMPLEX #74 tabs 30D Start) diltiazem HCl 120 mg 120 mg PO DAILY 08/23/24 Unknown History capsule,extended release 24 hr duloxetine 60 mg capsule,delayed 60 mg PO DAILY 08/23/24 Unknown History release fluticasone fur. 200 mcg-umeclid 1 ea inhalation DAILY 08/23/24 Unknown History 62.5 mcg-vilant 25 mcg inhalat.powder (Trelegy Ellipta) folic acid 1 mg tablet 1 mg PO DAILY 08/23/24 Unknown History hydroxyzine HCl 50 mg tablet 50 mg PO QHS 08/23/24 Unknown History nicotine (polacrilex) 4 mg buccal 4 mg PO Q8H 08/23/24 Unknown History lozenge nicotine 14 mg/24 hr daily 1 patch topical DAILY 08/23/24 Unknown History transdermal patch nicotine 21 mg/24 hr daily 1 patch topical DAILY 08/23/24 Unknown History transdermal patch olanzapine 10 mg tablet 10 mg PO QHS 08/23/24 Unknown History ondansetron HCl 8 mg tablet 8 mg PO TID 08/23/24 Unknown History oxycodone-acetaminophen 5 mg-325 1 tab PO Q6H PRN pain 4 days #20 08/23/24 Unknown Rx mg tablet (Percocet) tabs prazosin 1 mg capsule 1 mg PO QHS 08/23/24 Unknown History prazosin 2 mg capsule 2 mg PO QHS 08/23/24 Unknown History pregabalin 50 mg capsule 50 mg PO BID 08/23/24 Unknown History tizanidine 4 mg tablet 4 mg PO BID 08/23/24 Unknown History trazodone 150 mg tablet 150 mg PO QHS 08/23/24 Unknown History varenicline tartrate 0.5 mg (11)-1 1 tab PO 08/23/24 Unknown History mg (42) tablets in a dose pack Allergy/AdvReac Type Severity Reaction Status Date / Time amoxicillin AdvReac Hives Verified 08/23/24 11:35 ciprofloxacin (From Cipro) AdvReac HIVES Verified 08/23/24 11:35 mushroom (mushrooms) AdvReac Hives Verified 08/23/24 11:35 Surgical History History of cardiac ablation for atrial fibrillation Hx of gastric bypass Hx of cholecystectomy History of hysterectomy Social History (Updated 01/08/25 @ 11:30 by Mariela Daley) household members: none Smoking Status: Current some day smoker tobacco type: cigarettes and smokeless tobacco ROS ROS ED ROS Narrative Chest pain. Chronic cough. Denies hemoptysis. Denies shortness of breath. Constitutional Constitutional ED: Denies chills or fever(s) Eyes Eyes: Reports none ENT ENT ED: Denies ear pain Cardiovascular Cardiovascular: Denies palpitations or racing heartbeat Respiratory/Chest Respiratory/Chest: Reports cough; Denies dyspnea or dyspnea on exertion Gastrointestinal Gastrointestinal: Denies abdominal pain, constipation, diarrhea, melena, nausea or vomiting Genitourinary Genitourinary ED: Denies dysuria or hematuria Musculoskeletal Musculoskeletal: Denies arthralgias or back pain Integumentary Denies abscess or Abrasions Neurologic Neurologic: Denies headache(s), paresthesias or weakness Psychiatric Psychiatric: Denies anxiety or depression Endocrine Endocrinology: Denies cold intolerance Hematologic/Lymphatic Hematologic/Lymphatic: Denies easy bleeding Allergic/Immunologic Allergic/Immunologic ED: Denies mouth swelling, tongue swelling or urticaria EXAM Physical Exam Narrative Exam Narrative: 53-year-old female no acute distress. Vital signs are stable afebrile. Pulse ox 9 9% on room air no signs hypoxia. No tachycardia. No dyspnea. H EENT exam unremarkable. Mytrex members. Neck nontender no JVD. Lungs clear to auscultation bilaterally. Wet cough. No rales or rhonchi. Currently no wheezing. Heart regular rhythm rate about 90 no murmur. Chest wall and ribs currently no reproducible pain. Abdomen soft, nontender, nondistended, normal bowel sounds without peritoneal signs. Moving all 4 extremities. Bilateral 5/5 steamer gum candy strength. Dorsi plantarflexion intact. Calves are nontender without edema or cords. Neurologically she is awake alert no focal motor deficits. Back nontender. Const Vital Signs: 08/23/24 10:58 08/23/24 11:24 08/23/24 11:32 Temperature 97.1 F L Temperature Source Temporal Pulse Rate 92 Respiratory Rate 16 Respiratory Effort Normal Blood Pressure 124/85 H Blood Pressure Mean 98 Pulse Ox 99 98 Oxygen Delivery Method Room Air Room Air 08/23/24 12:00 08/23/24 13:11 08/23/24 14:00 Temperature Temperature Source Pulse Rate 81 81 74 Respiratory Rate 14 18 18 Respiratory Effort Blood Pressure 120/52 L 143/84 H 156/67 H Blood Pressure Mean 72 103 96 Pulse Ox 99 100 100 Oxygen Delivery Method Room Air 08/23/24 15:00 Temperature Temperature Source Pulse Rate 72 Respiratory Rate 18 Respiratory Effort Blood Pressure 139/78 H Blood Pressure Mean 98 Pulse Ox 100 Oxygen Delivery Method Positive well nourished and well developed; Negative for obese, cachectic, contractures or unkempt General Appearance ED: well developed and NAD; Negative for unkempt, cachectic, contractures or pallor Nutritional Appearance: Negative for cachectic or obese HEENT Reports moist mucous membranes normocephalic and atraumatic; Negative for trauma or tenderness Eyes PERRL and EOMs intact bilaterally General Eye ED: Negative for pale conjunctiva or scleral icterus Neck no lymphadenopathy, supple and no JVD General: Negative for tenderness Chest Wall inspection of chest normal and palpation of chest normal Chest: Negative for tenderness Resp normal respiratory effort and clear to auscultation bilaterally Auscultation: Negative for rales, rhonchi, wheezes or diminished lung sounds Cardio regular rhythm, S1 normal heart sound, S2 normal heart sound and no murmurs Peripheral Pulses: pulses 2+ throughout GI normal to inspection, nondistended, normoactive bowel sounds, soft to palpation, non-tender, non-distended and no masses Back/Spine no CVA tenderness and no thoracic nor lumbar tenderness Extremity normal to inspection General Extremety ED: Negative for edema, pulses abnormal or tenderness General Extremity: Negative for edema or pulses abnormal Neuro oriented x3 and CN's II-XII intact bilaterally Sensorium / Orientation: awake, alert, oriented to person, oriented to place and oriented to time; Negative for confused or lethargic Motor Exam: strength 5/5 throughout Psych mental status grossly normal Appearance: Negative for unkempt Mood & Affect: Negative for depressed, anxious or tearful Skin no rashes or lesions noted and no wounds General Skin Exam: Negative for jaundice or pallor Rashes: No rashes noted Trauma: Negative for abrasion or laceration MDM MDM MDM Narrative Medical decision making narrative: 53-year-old female with chest pain that does not sound cardiac. She has risk factors for pulmonary emboli due to her cancer with mets at this point clinically does not sound like pulmonary emboli. May be all musculoskeletal pain from her bony mets. She undergo a cardiac and PE workup. I am obtaining a CTA. She also states recently she had elevated lipase and would like that rechecked. Should be treated with morphine for pain and Zofran. Repeat exam patient doing well at 3:15 PM. We discussed all of her test results. I think her chest pain is a combination of her lung cancer or metastatic bony disease and the underlying pulmonary emboli. She is currently not on a blood thinner but she has been on Eliquis in the past for her A-fib which they stopped when she had the ablation. She is comfortable being started back on Eliquis. I also wrote her additional Percocet for pain she still does have some from her primary care physician. History & Record Review Discussion w/independent historian: Patient Additional record(s) reviewed:: Prior inpatient record, Prior outpatient record, Prior ED visit and Prior labs Lab Data Attestation: I reviewed the patient's lab results. Lab results narrative: CBC shows a white count of 5. H&H 11.4 and 34.9. Platelets 286. D-dimer is elevated 2.52. Electrolytes show a gap of 2. BUN of 18 creatinine 0.5. Glucose 99. Troponin less than 3. Labs: Laboratory Results - last 24 hr 08/23/24 11:28 WBC 5.3 RBC 4.20 Hgb 11.4 L Hct 34.9 L MCV 83.1 MCH 27.1 MCHC 32.7 RDW Std Deviation 38.8 RDW Coeff of Freddy 12.8 Plt Count 286 MPV 9.4 Immature Gran % (Auto) 0.400 Neut % (Auto) 71.9 H Lymph % (Auto) 14.6 L Waller % (Auto) 11.6 H Eos % (Auto) 0.9 Baso % (Auto) 0.6 Absolute Neuts (auto) 3.8 Absolute Lymphs (auto) 0.78 L Nucleated RBC % 0 D-Dimer Quant (PE/DVT) 2.52 H* Sodium 139 Potassium 3.6 Chloride 106 Carbon Dioxide 31.0 Anion Gap 2 L BUN 18 Creatinine 0.54 L Estim Creat Clear Calc 122.24 Est GFR (MDRD) Af Amer 150 Est GFR (MDRD) Non-Af 124 BUN/Creatinine Ratio 33.2 H Glucose 99 Calcium 9.1 Troponin I High Sens < 3 L Lipase 63 Radiography Diagnostic Testing: Clinical Impression(s) from Imaging Studies Chest CTA 08/23/24 11:18 IMPRESSION: Pulmonary emboli in branches of the right middle lobe pulmonary artery as described. 1.2 cm x 1 cm nodule in the anterior aspect of the right upper lobe in keeping with the neoplastic process. Small gallstones. Destruction of the T8 and T9 vertebrae. Electronically Signed: Familia Shah MD at 12:16 EST , Rhythm Strip Rhythm Strip: Sinus Rhythm Rate: 85 Ectopy: None EKG Initial EKG: Attestation: I personally reviewed and interpreted this EKG as follows: Interpretation: Sinus Rhythm and No Acute Injury Pattern Comments: Normal sinus rhythm rate of 85. No acute signs of VT or ischemia. No S1Q3T3. Discharge Plan Triage Chief Complaint: Chest Pain ED Provider: Monico Gabriel Dx/Rx/DC Orders Clinical Impression: Chest pain, Lung cancer metastatic to bone, Pulmonary emboli, History of atrial fibrillation Instructions: Embolism Pulmonary Dc Prescriptions: New Eliquis DVT-PE Treat 30D Start 5 mg (74 tabs) tablets,dose pack See Rx Instructions .Route .COMPLEX Qty: 74 0RF Rx Instructions: orally per package directions oxycodone-acetaminophen [Percocet] 5-325 mg tablet 1 tab PO Q6H PRN (Reason: pain) 4 Days Qty: 20 0RF No Action oxycodone-acetaminophen [Percocet] 5-325 mg tablet 1 tab PO Q8H PRN (Reason: pain) 3 Days Qty: 8 0RF oxycodone-acetaminophen [Percocet] 5-325 mg tablet 1 tab PO Q8H PRN (Reason: pain) 3 Days Qty: 10 0RF metaxalone 800 mg tablet 800 mg PO TID PRN (Reason: muscle pain) 7 Days Qty: 21 0RF nicotine 14 mg/24 hr patch 24 hour 1 patch topical DAILY tizanidine 4 mg tablet 4 mg PO BID prazosin 1 mg capsule 1 mg PO QHS trazodone 150 mg tablet 150 mg PO QHS nicotine 21 mg/24 hr patch 24 hour 1 patch topical DAILY diltiazem HCl 120 mg capsule,extended release 24hr 120 mg PO DAILY prazosin 2 mg capsule 2 mg PO QHS pregabalin 50 mg capsule 50 mg PO BID varenicline tartrate 0.5 mg (11)- 1 mg (42) tablets,dose pack 1 tab PO ondansetron HCl 8 mg tablet 8 mg PO TID olanzapine 10 mg tablet 10 mg PO QHS hydroxyzine HCl 50 mg tablet 50 mg PO QHS folic acid 1 mg tablet 1 mg PO DAILY nicotine (polacrilex) 4 mg lozenge 4 mg PO Q8H duloxetine 60 mg capsule,delayed release(DR/EC) 60 mg PO DAILY Trelegy Ellipta 200-62.5-25 mcg blister with device 1 ea inhalation DAILY Primary Care Provider: Rosalba Soto Referrals: Rosalba Soto MD [Primary Care Provider] - As soon as possible Antoni Ni MD [Med Staff - Active Staff] - As soon as possible Activity Restrictions/Additional Instructions: Percocet for pain I wrote you for some additional that you can clam picker from your pharmacy. You can take 1-2 every 6 hours as needed for pain. Eliquis which would need to start right away to thin out your provide you do have several small blood clots in your right lung. I believe the chest pain is a combination of the blood clots and also the cancer that is in your bones. Print Language: Slovenian Disposition Disposition: Home, Self Care
[2024-08-23] MEDS: Ondansetron 4 MG/2 ML Vial IV (11:30)
[2024-08-23] MEDS: morphine 8 MG/ML Syringe IV (11:30)
[2024-08-23 11:50] LABS: Absolute Lymphocyte Count 0.78 X10^3/uL (0.83-4.51); Absolute Neutrophil Count 3.8 X10^3/uL (2.0-7.7); Basophil# 0.03 X10^3/uL; Basophil% 0.6 % (0-1); Eosinophil# 0.05 X10^3/uL; Eosinophils% 0.9 % (0-5); Hematocrit 34.9 % (37-47); Hemoglobin 11.4 g/dL (12.0-15.0); Lymphocyte # 0.78 X10^3/ul (0.83-4.51); Lymphocyte % 14.6 % (19-41); Mean Corp Hgb Conc 32.7 g/dL (32-36); Mean Corpuscular Hgb 27.1 pg (27.0-32.0); Mean Corpuscular Volume 83.1 fL (81-99); Mean Platelet Vol. 9.4 fl (6.2-12.0); Monocyte# 0.62 X10^3/uL; Monocyte% 11.6 % (0-10); NRBC Flagged by Analyzer 0 % (0-5); Neutrophil # 3.83 X10^3/uL (2.7-7.7); Neutrophil % 71.9 % (47-70); Platelet Count 286 K/mm3 (150-450); RBC Distribution Width CV 12.8 % (11.6-14.6); RBC Distribution Width SD 38.8 fl (35.1-43.9); White Blood Count 5.3 K/mm3 (4.4-11.0)
[2024-08-23 12:16] LABS: D-Dimer Quantitative (DVT/PE) 2.52 FEU/ug/m (0.27-0.49)
[2024-08-23 12:35] LABS: Anion Gap 2 (5-15); BUN 18 mg/dL (7-18); BUN/Creat Ratio 33.2 RATIO (10-20); Calcium,Total 9.1 mg/dL (8.5-10.1); Chloride 106 mmol/L (98-107); Creatinine, Serum 0.54 mg/dL (0.55-1.02); EST Glomerular Filtration Rate 124 mL/min (>60); Est Glom Filt Rate - Afr Amer 150 mL/min (>60); Estimated Creatinine Clearance 122.24 ml/min; Glucose 99 mg/dL (74-106); Potassium 3.6 mmol/L (3.5-5.1); Sodium Level 139 mmol/L (136-145); Troponin-I HS < 3 pg/mL (3.0-54.0)
[2024-08-23] MEDS: morphine 8 MG/ML Syringe 6 MG IV (13:10)
[2024-08-23 13:49] LABS: Lipase 63 U/L (13-75)
--- NOTE | 2024-08-23 17:03 | CM.ED ---
Social Work SW was notified that patient had declined to worm picker Eliquis prescription due to the cost. SW contacted patient and notified her that we had a discount card for Eliquis to help off set the cost. SW asked patient if she would be able to come worm picker card. Patient stated that either her or a friend would come to the ER tomorrow and worm picker the discount card. Hoa Jackson, CRANE HOIST OR LIFT OPERATOR, BEAD INSPECTOR
--- NOTE | 2024-08-24 09:41 | CM.ED ---
Social Work Patient's cousin presented to [facility] requesting Eliquis discount card. Cousin reports the copay was 700 with patient's insurance, so feels this card will be helpful for patient. No other services requested. -ALANA Alvarez
== END 2024-08-23 15:24 | disposition home or self-care (01) ==
PROVIDERS: Emergency Provider Emergency Medicine; PCP Internal Medicine; Visit Provider Emergency Medicine
DX: R07.9 Chest pain, unspecified (principal); C79.51 Secondary malignant neoplasm of bone; C34.90 Malignant neoplasm of unspecified part of unspecified bronchus or lung; I48.91 Unspecified atrial fibrillation; I26.99 Other pulmonary embolism without acute cor pulmonale; G89.3 Neoplasm related pain (acute) (chronic); R05.3 Chronic cough; F17.210 Nicotine dependence, cigarettes, uncomplicated; Z90.49 Acquired absence of other specified parts of digestive tract; Z90.710 Acquired absence of both cervix and uterus; Z98.84 Bariatric surgery status
CPT/HCPCS: 71275; 80048; 83690; 84484; 85025; 85379; 93005; 96374; 96375; 96376; 99284; Q9967; A4216; J2405

== ENCOUNTER 2024-09-12 07:58 | Emergency (ER) | payer BC, SELFPAY ==
[2024-09-12] VITALS (7 sets, daily range): BP systolic 154–172; BP diastolic 78–102; PULSE 91–100; RESP 18–31; TEMP 36.6–36.7; O2SAT 97–99; BMI 24.3
--- NOTE | 2024-09-12 07:59 | EKG12_ITS ---
Test Reason : NEURO Blood Pressure : */* mmHG Vent. Rate : 93 BPM Atrial Rate : 93 BPM P-R Int : 136 ms QRS Dur : 84 ms QT Int : 384 ms P-R-T Axes : 59 31 53 degrees QTcB Int : 477 ms Poor data quality, interpretation may be adversely affected Normal sinus rhythm Normal ECG Confirmed by JA VELÁSQUEZ, TD ([id number]), editor newspaper HAI PANG ([id number]) on 09/14/2024 6:34:49 AM Referred By: Confirmed By: TD PERES MD
--- NOTE | 2024-09-12 07:59 | CT_ITS ---
INDICATION: Neuro deficit, acute, stroke suspected STUDY: STROKE PROTOCOL CT BRAIN WITHOUT CONTRAST REASON FOR EXAM: Female, 53 years old. Neuro deficit, acute, stroke suspected RADIATION DOSAGE (If Supplied By Facility): CTDIvol = ( ) mGy, DLP = ( ) mGycm TECHNIQUE: Transaxial CT imaging of the brain was performed without administration of intravenous contrast material. Individualized dose optimization techniques were used for this CT. COMPARISON: None. FINDINGS: Major intracranial venous sinuses: No abnormal hyperdensity MCA and basilar arteries assessment: No abnormal hyperdensity No visualized extra-axial fluid collection or subdural hemorrhage. Normal soft tissue structures. Moderately abnormal aggressive lytic process destroying the inner cortex and intramedullary region of the left parietal bone and also extending through small erosions through the outer cortex of the bone. Patchy hypodensity in the underlying left parietal lobe brain parenchyma is consistent with metastatic disease. There is mild cerebral atrophy with widening of the extra-axial spaces and ventricular dilatation. There are areas of decreased attenuation within the white matter tracts of the supratentorial brain, consistent with microvascular disease changes. Normal basal ganglia and thalami. Normal brainstem. Normal cerebellum. There is no demonstrated sulcal effacement or parenchymal edema. There is no intracranial hemorrhage. Small area of patchy hypodensity and loss of garcia-white differentiation in theposterior superior aspect of the right frontal lobe seen on image 36/46 series 2 appears to represent sequela of late subacute to chronic infarction. Normal visualized paranasal sinuses. ASPECTS Score for Acute Strokes: 10 CT/STROKE Brain/Head without Cont IMPRESSION: 1. Small area of patchy hypodensity and loss of garcia-white differentiation in theposterior superior aspect of the right frontal lobe seen on image 36/46 series 2 appears to represent sequela of late subacute to chronic infarction. Given finding of left parietal bone metastasis this area of hypodensity could also represent malignancy. 2. Moderately abnormal aggressive lytic process destroying the inner cortex and intramedullary region of the left parietal bone and also extending through small erosions through the outer cortex of the bone. Patchy hypodensity in the underlying left parietal lobe brain parenchyma is consistent with metastatic disease. 3. Concern for stroke/positive symptomatology should be further evaluated with CT brain perfusion/CTA or MRI of the brain for further assessment. N.B. : The above Results were Read Back by Denis Donis MD to Tj Thakur DO, and understanding confirmed on 09/12/2024 08:23:42 (ET). Electronically Signed: Denis Donis MD at 8:26 EST ,
--- NOTE | 2024-09-12 08:00 | CT_ITS ---
STUDY: CTA HEAD AND NECK WITH CONTRAST REASON FOR EXAM: Female, 53 years old. Neuro deficit, acute, stroke suspected RADIATION DOSAGE (If Supplied By Facility): CTDIvol = ( 19.05 ) mGy, DLP = ( 682.52 ) mGycm TECHNIQUE: CT angiography was performed with a multi-detector CT scanner. Data acquisition was obtained from the skull base through the vertex following intravenous administration of IV 100mL [id number]-[id number]. MIP images were reconstructed from the axial data set. Post-processing of the angiographic images was performed, with multiplanar reformation and 3D reconstruction. Individualized dose optimization techniques were used for this CT. COMPARISON: CTA of the chest dated September 12, 2024 and August 23, 2024. FINDINGS: Moderate lytic lesion in the cortex and intramedullary space of the left side of the parietal bone and partially extending through the outer cortex due to metastasis. The underlying brain parenchyma in the left parietal lobe abnormally hypodense with ovoid foci consistent with metastatic disease that are not well evaluated study. Abrupt cut off of the left M1/sylvian junction in the left temporal lobe associated with parenchymal hypodensity and slight volume loss likely due to a acute thrombosis with associated hypodensity of the aortic left anterior temporal parenchyma in this region see image #[id number] series 2. Patient clinically presents with right leg with suggest acute rather than late subacute presentation. However MRI of the brain can be obtained for further assessment if indicated. Normal bilateral petrous carotid arteries. Normal right cavernous carotid artery with a normal supraclinoid bifurcation. Normal left cavernous carotid artery with a normal supraclinoid bifurcation. Normal right A1 segments of the anterior cerebral artery. Normal left A1 segments of the anterior cerebral artery. Normal intact anterior communicating artery (ACOM). Normal bilateral A2 segments of the anterior cerebral arteries. Normal right M1 and M2 segments of the middle cerebral arteries, with a normal M1 bifurcation. Normal left M1. Normal right posterior communicating artery (PCOM). Normal left posterior communicating artery (PCOM). Normal bilateral vertebral arteries. Normal basilar artery with a normal basilar bifurcation. The visualized bilateral superior cerebellar (SCA) arteries are normal. Normal bilateral P1, P2 and visualized P3 segments of the posterior cerebral arteries. There is no demonstrated aneurysm of the [place]. No demonstrated thrombus or occlusion or hemodynamically significant stenosis of the major intracranial arteries. Fully patent and normal enhancement of the major intracranial venous sinuses, with no evidence of venous sinus thrombosis or occlusion. NECK CTA: Bilateral pulmonary artery emboli are present in the secondary branches. AORTIC ARCH: Normal visualized aortic arch. Normal origins of the brachiocephalic, left common carotid, and left subclavian arteries. RIGHT CAROTID ARTERIES: Normal right common carotid artery (CCA). There is mild atherosclerotic plaque formation with minimal narrowing of the right carotid bulb. Normal origin of the right internal carotid (ICA) artery without a hemodynamically significant stenosis. Normal visualized cervical portion of the right internal carotid artery. Normal origin of the right external carotid artery (ECA). LEFT CAROTID ARTERIES: Normal left common carotid artery (CCA). There is mild atherosclerotic plaque formation with minimal narrowing of the left carotid bulb. Normal origin of the left internal carotid (ICA) artery without a hemodynamically significant stenosis. Normal visualized cervical portion of the left internal carotid artery. Normal origin of the left external carotid artery (ECA). VERTEBRAL ARTERIES: Normal bilateral vertebral arteries. No demonstrated vertebral artery thrombus or occlusion or dissection. CT/STROKE CTA Head AND Neck W/Con IMPRESSION: 1. Abrupt cut off of the left M1/sylvian junction in the left temporal lobe associated with parenchymal hypodensity and slight volume loss likely due to a acute thrombosis with associated hypodensity of the aortic left anterior temporal parenchyma in this region see image #[id number] series 2. Patient clinically presents with right leg with suggest acute rather than late subacute presentation. However MRI of the brain can be obtained for further assessment if indicated. 2. Neck CTA: Mild plaque and stenosis in the bilateral carotid bulbs of the internal carotid arteries but no thrombosis or hemodynamically significant stenosis. 3. CT Brain Perfusion and/or MRI of the brain can be obtained for small infarcts and perforating vessel disease not detected by CT or CTA. N.B. : The above Results were Read Back by Denis Donis MD to Leonel Klusty-Ary , DO, and understanding confirmed on 09/12/2024 08:48:25 (ET). Electronically Signed: Denis Donis MD at 8:49 EST ,
--- NOTE | 2024-09-12 08:06 | CT_ITS ---
STUDY: CTA CHEST REASON FOR EXAM: Female, 53 years old. PE RADIATION DOSAGE (If Supplied By Facility): CTDIvol = ( 14.21 ) mGy, DLP = ( 466.27 ) mGycm TECHNIQUE: The examination was performed with the intravenous administration of IV 75mL [id number]-370. Post-processing of the angiographic images was performed, with multiplanar reformation and 3D reconstruction. Individualized dose optimization techniques were used for this CT. COMPARISON: CTA of the chest dated August 23, 2024 FINDINGS: * Multiple new small foci of pulmonary artery emboli have developed in the most distal aspect of the left main pulmonary artery and extends into the peripheral branches nonocclusive and some are partially occlusive extending into the superior segment of the left lower lobe and in to the left upper lobe * Interval development of multiple small pulmonary artery emboli distal aspect of the right main pulmonary artery with extension into the peripheral branches of the right middle and lower lobes and the right upper lobe * On the prior study only a few branches of the right middle lobe have pulmonary artery emboli the remaining findings are all new * Nearly occlusive thrombus filling the major superior peripheral artery of the right upper lobe * Interval development of trace pleural fluid on the left and a small right pleural effusion * Interval enlargement of a cluster of malignant necrotic lymph nodes in the right paratracheal region and precarinal region which have both increased in size and number since the prior study * The malignant masses of the central and posterior lateral aspect of the right upper lobe redemonstrated. The spiculated mass which is partially calcified in the right middle lobe subpleural region has increased in size to 1.21 cm up to 1.59 x 2.21 cm and a new small pneumothorax is developed anterior to the right upper lobe * Interval development of diffuse groundglass edema throughout both lungs * Newly developed moderate consolidation in the posterior lateral aspect of the right upper lobe. Small islands of patchy consolidation are also developed in the bilateral lower lobes with small tree-in-bud nodules or spiculated lesions consistent with metastasis. * Extensive osteolytic metastasis with destruction of the mid to anterior aspect of the T9 vertebral body has progressed since the last study. Mild to moderate metastatic cystic lucencies are present in T8, T10, T11, T12. Normal thoracic aorta and visualized great vessels. There is no demonstrated aortic dissection. Normal heart and pericardium. No demonstrated calcifications of the coronary arteries. Normal visualized trachea and bronchi. The lungs are well expanded. Normal chest wall structures. There are degenerative changes of thoracic spine. Normal visualized upper abdomen. CT/CTA Chest W/WO Contrast IMPRESSION: 1. Multiple newly developed bilateral pulmonary artery emboli involving the distal aspects of the main pulmonary arteries as numerous peripheral branches scattered throughout both lungs which are both partially occlusive and nonocclusive 2. No saddle embolus is present 3. Lymphangitic spread of metastasis to the bilateral lower lobes and throughout the right upper lobe 4. Newly developed diffuse reactive groundglass edema throughout both lungs 5. Progression of metastatic lymphadenopathy in the right paratracheal region 6. Enlargement of spiculated mass of the right upper lobe 7. Newly developed small right pneumothorax at 10% Electronically Signed: Denis Donis MD at 8:37 EST ,
--- NOTE | 2024-09-12 08:07 | EX.ED.DYSGE1 ---
HPI History of Present Illness Chief Complaint: Stroke Alert Narrative Narrative: Chief complaint and HPI: Strokelike symptoms. 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 Patient was made a stroke alert prior to arrival. Originally last known normal was unknown however later family presented at bedside and her last known normal was about 5 PM. They talked to the patient over the phone in which she had no complaints and was at her normal baseline. Patient is aphasic on exam therefore history taken by EMS as well as family member. Per EMS, family called 911 this morning after they noticed that the patient seemed anxious, was nonverbal, and appeared to have right upper extremity weakness. On presentation, patient is alert, aphasic, right-sided neglect. Will not follow commands. Normal glucose. Taken immediately to CT. Past medical history obtained by chart review. Review of systems: See HPI Medications: As listed on the chart Allergies: As listed on the chart PFSH: Per chart Vital signs: As listed on the chart. Reviewed. Physical exam: Gen: Alert, aphasic and unable to answer questions or follow commands, neglecting right side Head: Normocephalic, atraumatic Eyes: No sclera icterus, conjunctiva clear, PERRL, left-sided gaze preference ENT: Moist mucous membranes, unable to assess for facial asymmetry as patient will not smile or follow command Neck: Trachea midline, No JVD CV: RRR, no murmurs, no peripheral edema Resp: Lungs CTA BL, no w/r/c GI: Abd soft, non-distended, non-tender, no r/r/g Musc: Moving her left upper and lower extremity but not following commands, right upper and lower extremity are flaccid with no resistance with gravity but again not following commands, unable to test ataxia or pronator drift Skin: Warm, dry, intact Neuro: Alert, patient is aphasic unable to assess orientation or sensation, NIH difficult to obtain secondary to above although at least 20 [facility] Medical History Constipation Encounter for education Esophageal reflux CPAP (continuous positive airway pressure) dependence Chronic pain Cervical cancer Asthma Arthropathy Anemia Atrial fibrillation Fibromyalgia Osteoarthritis Lung cancer metastatic to bone Home Medications ?Medication ?Instructions ?Recorded ?Last Taken ?Type metaxalone 800 mg tablet 800 mg PO TID PRN muscle pain 7 05/07/24 Unknown Rx days #21 tabs oxycodone-acetaminophen 5 mg-325 1 tab PO Q8H PRN pain 3 days #8 05/22/24 Unknown Rx mg tablet (Percocet) tabs oxycodone-acetaminophen 5 mg-325 1 tab PO Q8H PRN pain 3 days #10 08/04/24 Unknown Rx mg tablet (Percocet) tabs apixaban 5 mg (74 tabs) tablets in See Rx Instructions .Route 08/23/24 Unknown Rx a dose pack (Valopaa DVT-PE Treat .COMPLEX #74 tabs 30D Start) diltiazem HCl 120 mg 120 mg PO DAILY 08/23/24 Unknown History capsule,extended release 24 hr duloxetine 60 mg capsule,delayed 60 mg PO DAILY 08/23/24 Unknown History release fluticasone fur. 200 mcg-umeclid 1 ea inhalation DAILY 08/23/24 Unknown History 62.5 mcg-vilant 25 mcg inhalat.powder (Trelegy Ellipta) folic acid 1 mg tablet 1 mg PO DAILY 08/23/24 Unknown History hydroxyzine HCl 50 mg tablet 50 mg PO QHS 08/23/24 Unknown History nicotine (polacrilex) 4 mg buccal 4 mg PO Q8H 08/23/24 Unknown History lozenge nicotine 14 mg/24 hr daily 1 patch topical DAILY 08/23/24 Unknown History transdermal patch nicotine 21 mg/24 hr daily 1 patch topical DAILY 08/23/24 Unknown History transdermal patch olanzapine 10 mg tablet 10 mg PO QHS 08/23/24 Unknown History ondansetron HCl 8 mg tablet 8 mg PO TID 08/23/24 Unknown History oxycodone-acetaminophen 5 mg-325 1 tab PO Q6H PRN pain 4 days #20 08/23/24 Unknown Rx mg tablet (Percocet) tabs prazosin 1 mg capsule 1 mg PO QHS 08/23/24 Unknown History prazosin 2 mg capsule 2 mg PO QHS 08/23/24 Unknown History pregabalin 50 mg capsule 50 mg PO BID 08/23/24 Unknown History tizanidine 4 mg tablet 4 mg PO BID 08/23/24 Unknown History trazodone 150 mg tablet 150 mg PO QHS 08/23/24 Unknown History varenicline tartrate 0.5 mg (11)-1 1 tab PO 08/23/24 Unknown History mg (42) tablets in a dose pack dexamethasone 4 mg tablet 4 mg PO QDAY #30 tabs 08/29/24 Unknown Rx oxycodone-acetaminophen 5 mg-325 1 tab PO Q6H PRN pain 30 days #90 08/29/24 Unknown Rx mg tablet tabs acetaminophen 650 mg 1,300 mg PO Q8H 08/31/24 Unknown History tablet,extended release (Tylenol Arthritis Pain) apixaban 5 mg tablet (Eliquis) 5 mg PO BID #60 tabs 09/07/24 Unknown Rx morphine 30 mg tablet,extended 30 mg PO Q12H 30 days #60 tabs 09/07/24 Unknown Rx release sennosides 8.6 mg tablet (senna) 8.6 mg PO QDAY 09/07/24 Unknown History Allergy/AdvReac Type Severity Reaction Status Date / Time measles, mumps, and rubella Allergy unknown Verified 09/07/24 13:17 vaccine amoxicillin AdvReac Hives Verified 09/07/24 13:17 ciprofloxacin (From Cipro) AdvReac HIVES Verified 09/07/24 13:17 mushroom (mushrooms) AdvReac Hives Verified 09/07/24 13:17 Family History Mother Cancer Osteoporosis SLE (systemic lupus erythematosus) Surgical History H/O oophorectomy History of cardiac ablation for atrial fibrillation Hx of gastric bypass Hx of cholecystectomy History of hysterectomy Social History household members: none Smoking Status: Current some day smoker tobacco type: cigarettes and smokeless tobacco alcohol intake: current alcohol intake frequency: holidays/special occasions only substance use type: does not use EXAM Physical Exam Const Vital Signs: 09/12/24 07:58 09/12/24 07:59 09/12/24 08:03 Temperature 98.1 F 98.1 F Temperature Source Oral Oral Pulse Rate 92 92 Respiratory Rate 18 18 Blood Pressure 154/102 H 154/102 H Blood Pressure Mean 119 119 Pulse Ox 98 98 98 Oxygen Delivery Method Room Air Room Air Room Air Oxygen Flow Rate (L/min) 09/12/24 08:29 09/12/24 08:30 09/12/24 09:00 Temperature Temperature Source Pulse Rate 100 91 98 Respiratory Rate 31 H 18 24 H Blood Pressure 172/78 H 154/79 H 158/78 H Blood Pressure Mean 109 104 104 Pulse Ox 97 98 99 Oxygen Delivery Method Room Air Room Air Nasal Cannula Oxygen Flow Rate (L/min) 2 09/12/24 09:11 Temperature 98 F Temperature Source Pulse Rate 98 Respiratory Rate 24 H Blood Pressure 158/81 H Blood Pressure Mean 106 Pulse Ox 99 Oxygen Delivery Method Oxygen Flow Rate (L/min) MDM MDM MDM Narrative Medical decision making narrative: 53-year-old female with 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 See HPI and physical exam. Patient was originally made a stroke alert prior to arrival as unknown last known normal. Last known normal now 5 PM yesterday evening. Patient is outside the stroke window therefore not a tPA candidate. She is also on Eliquis with metastatic cancer and known PE. NIH is high. Patient was taken immediately to CT scanner. [facility] for assessment. Stroke workup ordered including CTA chest given patient's known metastatic disease and PE. CT head CT head shows late subacute to chronic infarction of the right frontal lobe. Left parietal bone metastasis. Moderately abnormal aggressive lytic process dorsally in the inner cortex of the left parietal bone. CTA head shows an abrupt cut off of the left M1 and the left temporal lobe and slight volume loss likely due to an acute thrombosis with associated hyperdensity. Mild plaque stenosis in the bilateral carotid bulbs. Patient is an LVO. [facility] neurology agrees and patient will be transferred via air to [facility] for thrombectomy as patient is in the LVO window. CTA chest shows multiple newly developed bilateral pulmonary artery emboli. Lymphatic spread of metastasis to the bilateral lower lobes and throughout the right upper lobe. Enlargement of the mass of the right upper lobe. Newly developed small right pneumothorax at 10%. Patient will be placed on 2 L nasal cannula. No chest tube at this time as vitals are stable and patient is in no respiratory distress. Gerber catheter will be placed. CBC with leukocytosis of 11.2. Patient has baseline anemia. No thrombocytopenia at 128. Normal INR. BMP without YE or significant electrolyte abnormality. Troponin elevated at 1083. No ST elevation on EKG. UA negative for UTI. Patient transferred to [facility] via air. EKG: Interpreted by me/EM physician: EKG shows normal sinus rhythm without any acute ischemic changes. Heart rate 93. Diagnostic: Interpreted by me/EM physician: No cardiomegaly, effusion, pneumonia 40 minutes of critical care time utilized in managing the patient. This is due to high probability of and deterioration of the patient based on the patient's condition and excludes any separately billable procedures. Impression: 1. Left M1 LVO 2. Metastatic lung cancer 3. Worsening bilateral PE despite Eliquis 4. NSTEMI 5. Thrombocytopenia 6. Chronic kidney Lab Data Labs: Laboratory Results - last 24 hr 09/12/24 09/12/24 07:30 08:43 WBC 11.2 H RBC 4.11 L Hgb 11.0 L Hct 35.3 L MCV 85.9 MCH 26.8 L MCHC 31.2 L RDW Std Deviation 44.6 H RDW Coeff of Freddy 14.4 Plt Count 128 L MPV 11.1 Immature Gran % (Auto) 0.600 Neut % (Auto) 83.6 H Lymph % (Auto) 6.4 L [place] % (Auto) 8.3 Eos % (Auto) 0.9 Baso % (Auto) 0.2 Absolute Neuts (auto) 9.3 H Absolute Lymphs (auto) 0.71 L Nucleated RBC % 0 Platelet Estimate SLT DEC Polychromasia 1+ PT 15.5 H INR 1.2 APTT 24.7 Sodium 136 Potassium 3.7 Chloride 104 Carbon Dioxide 27.0 Anion Gap 5 BUN 20 H Creatinine 0.41 L Estim Creat Clear Calc 150.77 Est GFR (MDRD) Af Amer 207 Est GFR (MDRD) Non-Af 171 BUN/Creatinine Ratio 48.9 H Glucose 108 H Calcium 8.1 L Troponin I High Sens 1083 H* Urine Color Yellow Urine Clarity Clear Urine pH 7.0 Ur Specific [place] 1.005 Urine Protein Negative Urine Glucose (UA) Normal Urine Ketones Negative Urine Occult Blood 25 H Urine Nitrite Negative Urine Bilirubin Negative Urine Urobilinogen 1 H Ur Leukocyte Esterase Negative Urine RBC 0-5 SEEN Urine WBC 0-5 SEEN Ur Squamous Epith Cells 0-5 SEEN Urine Bacteria 1+ Urine Mucus 0 SEEN Radiography Diagnostic Testing: Clinical Impression(s) from Imaging Studies Brain CT 09/12/24 07:59 IMPRESSION: 1. Small area of patchy hypodensity and loss of garcia-white differentiation in theposterior superior aspect of the right frontal lobe seen on image 36/46 series 2 appears to represent sequela of late subacute to chronic infarction. Given finding of left parietal bone metastasis this area of hypodensity could also represent malignancy. 2. Moderately abnormal aggressive lytic process destroying the inner cortex and intramedullary region of the left parietal bone and also extending through small erosions through the outer cortex of the bone. Patchy hypodensity in the underlying left parietal lobe brain parenchyma is consistent with metastatic disease. 3. Concern for stroke/positive symptomatology should be further evaluated with CT brain perfusion/CTA or MRI of the brain for further assessment. N.B. : The above Results were Read Back by Denis Donis MD to Tj Thakur DO, and understanding confirmed on 09/12/2024 08:23:42 (ET). Electronically Signed: Denis Donis MD at 8:26 EST Reading Location ID and State: [facility] / [place] , Service support , ADDENDUM: 09/12/24 0833 IMPRESSION: 1. Small area of patchy hypodensity and loss of garcia-white differentiation in theposterior superior aspect of the right frontal lobe seen on image 36/46 series 2 appears to represent sequela of late subacute to chronic infarction. Given finding of left parietal bone metastasis this area of hypodensity could also represent malignancy. 2. Moderately abnormal aggressive lytic process destroying the inner cortex and intramedullary region of the left parietal bone and also extending through small erosions through the outer cortex of the bone. Patchy hypodensity in the underlying left parietal lobe brain parenchyma is consistent with metastatic disease. 3. Concern for stroke/positive symptomatology should be further evaluated with CT brain perfusion/CTA or MRI of the brain for further assessment. N.B. : The above Results were Read Back by Denis Donis MD to Tj Thakur DO, and understanding confirmed on 09/12/2024 08:23:42 (ET). Electronically Signed: Denis Donis MD at 8:26 EST , Head/Neck CTA 09/12/24 08:00 IMPRESSION: 1. Abrupt cut off of the left M1/sylvian junction in the left temporal lobe associated with parenchymal hypodensity and slight volume loss likely due to a acute thrombosis with associated hypodensity of the aortic left anterior temporal parenchyma in this region see image #[id number] series 2. Patient clinically presents with right leg with suggest acute rather than late subacute presentation. However MRI of the brain can be obtained for further assessment if indicated. 2. Neck CTA: Mild plaque and stenosis in the bilateral carotid bulbs of the internal carotid arteries but no thrombosis or hemodynamically significant stenosis. 3. CT Brain Perfusion and/or MRI of the brain can be obtained for small infarcts and perforating vessel disease not detected by CT or CTA. N.B. : The above Results were Read Back by Denis Donis MD to Leonel Awan DO, and understanding confirmed on 09/12/2024 08:48:25 (ET). Electronically Signed: Denis Donis MD at 8:49 EST , ADDENDUM: 09/12/24 0856 IMPRESSION: 1. Abrupt cut off of the left M1/sylvian junction in the left temporal lobe associated with parenchymal hypodensity and slight volume loss likely due to a acute thrombosis with associated hypodensity of the aortic left anterior temporal parenchyma in this region see image #[id number] series 2. Patient clinically presents with right leg with suggest acute rather than late subacute presentation. However MRI of the brain can be obtained for further assessment if indicated. 2. Neck CTA: Mild plaque and stenosis in the bilateral carotid bulbs of the internal carotid arteries but no thrombosis or hemodynamically significant stenosis. 3. CT Brain Perfusion and/or MRI of the brain can be obtained for small infarcts and perforating vessel disease not detected by CT or CTA. N.B. : The above Results were Read Back by Denis Donis MD to Leonel Awan DO, and understanding confirmed on 09/12/2024 08:48:25 (ET). Electronically Signed: Denis Donis MD at 8:49 EST , Chest CTA 09/12/24 08:06 IMPRESSION: 1. Multiple newly developed bilateral pulmonary artery emboli involving the distal aspects of the main pulmonary arteries as numerous peripheral branches scattered throughout both lungs which are both partially occlusive and nonocclusive 2. No saddle embolus is present 3. Lymphangitic spread of metastasis to the bilateral lower lobes and throughout the right upper lobe 4. Newly developed diffuse reactive groundglass edema throughout both lungs 5. Progression of metastatic lymphadenopathy in the right paratracheal region 6. Enlargement of spiculated mass of the right upper lobe 7. Newly developed small right pneumothorax at 10% Electronically Signed: Denis Donis MD at 8:37 EST , Chest X-Ray 09/12/24 08:50 IMPRESSION: Lungs are somewhat hypoinflated, but appear clear of acute disease. No pleural effusion or pneumothorax is noted. The cardiomediastinal silhouette is unchanged, without evidence of cardiomegaly. No acute osseous process is noted. Reading Location: [address] Discharge Plan Triage Chief Complaint: Stroke Alert ED Provider: Leonel Awan Dx/Rx/DC Orders Prescriptions: No Action dexamethasone 4 mg tablet 4 mg PO QDAY Qty: 30 0RF oxycodone-acetaminophen 5-325 mg tablet 1 tab PO Q6H PRN (Reason: pain) 30 Days Qty: 90 0RF acetaminophen [Tylenol Arthritis Pain] 650 mg tablet extended release 1,300 mg PO Q8H sennosides [senna] 8.6 mg tablet 8.6 mg PO QDAY morphine 30 mg tablet extended release 30 mg PO Q12H 30 Days Qty: 60 0RF Eliquis 5 mg tablet 5 mg PO BID Qty: 60 4RF oxycodone-acetaminophen [Percocet] 5-325 mg tablet 1 tab PO Q8H PRN (Reason: pain) 3 Days Qty: 8 0RF oxycodone-acetaminophen [Percocet] 5-325 mg tablet 1 tab PO Q8H PRN (Reason: pain) 3 Days Qty: 10 0RF metaxalone 800 mg tablet 800 mg PO TID PRN (Reason: muscle pain) 7 Days Qty: 21 0RF nicotine 14 mg/24 hr patch 24 hour 1 patch topical DAILY tizanidine 4 mg tablet 4 mg PO BID prazosin 1 mg capsule 1 mg PO QHS trazodone 150 mg tablet 150 mg PO QHS nicotine 21 mg/24 hr patch 24 hour 1 patch topical DAILY diltiazem HCl 120 mg capsule,extended release 24hr 120 mg PO DAILY prazosin 2 mg capsule 2 mg PO QHS pregabalin 50 mg capsule 50 mg PO BID varenicline tartrate 0.5 mg (11)- 1 mg (42) tablets,dose pack 1 tab PO ondansetron HCl 8 mg tablet 8 mg PO TID olanzapine 10 mg tablet 10 mg PO QHS hydroxyzine HCl 50 mg tablet 50 mg PO QHS folic acid 1 mg tablet 1 mg PO DAILY nicotine (polacrilex) 4 mg lozenge 4 mg PO Q8H duloxetine 60 mg capsule,delayed release(DR/EC) 60 mg PO DAILY Trelegy Ellipta 200-62.5-25 mcg blister with device 1 ea inhalation DAILY Eliquis DVT-PE Treat 30D Start 5 mg (74 tabs) tablets,dose pack See Rx Instructions .Route .COMPLEX Qty: 74 0RF Rx Instructions: orally per package directions oxycodone-acetaminophen [Percocet] 5-325 mg tablet 1 tab PO Q6H PRN (Reason: pain) 4 Days Qty: 20 0RF Primary Care Provider: Rosalba Soto Referrals: Rosalba Soto MD [Primary Care Provider] - Print Language: Cambodian Disposition Disposition: Acute Care Hospital Discharge Location: [facility] [place] Discharge Date/Time: 09/12/24 09:20
[2024-09-12 08:16] LABS: Absolute Lymphocyte Count 0.71 X10^3/uL (0.83-4.51); Absolute Neutrophil Count 9.3 X10^3/uL (2.0-7.7); Basophil# 0.02 X10^3/uL; Basophil% 0.2 % (0-1); Eosinophils% 0.9 % (0-5); Hematocrit 35.3 % (37-47); Lymphocyte # 0.71 X10^3/ul (0.83-4.51); Lymphocyte % 6.4 % (19-41); Mean Corp Hgb Conc 31.2 g/dL (32-36); Mean Corpuscular Hgb 26.8 pg (27.0-32.0); Mean Corpuscular Volume 85.9 fL (81-99); Mean Platelet Vol. 11.1 fl (6.2-12.0); Monocyte# 0.93 X10^3/uL; Monocyte% 8.3 % (0-10); NRBC Flagged by Analyzer 0 % (0-5); Neutrophil # 9.34 X10^3/uL (2.7-7.7); Neutrophil % 83.6 % (47-70); POSITIVE COUNT YES; Platelet Count 128 K/mm3 (150-450); RBC Distribution Width CV 14.4 % (11.6-14.6); RBC Distribution Width SD 44.6 fl (35.1-43.9); Red Blood Count 4.11 M/mm3 (4.2-5.4); White Blood Count 11.2 K/mm3 (4.4-11.0)
[2024-09-12 08:20] LABS: Differential Indicated SCAN CRITERIA MET
[2024-09-12 08:36] LABS: International Normalized Ratio 1.2; Prothrombin Time (Protime)PT. 15.5 SECONDS (11.7-14.9)
[2024-09-12 08:37] LABS: Partial Thromboplast Time 24.7 Seconds (24.1-36.2)
[2024-09-12 08:48] LABS: Mucous, Urine 0 SEEN /hpf (<or=2+)
[2024-09-12 08:50] LABS: Anion Gap 5 (5-15); BUN 20 mg/dL (7-18); BUN/Creat Ratio 48.9 RATIO (10-20); Calcium,Total 8.1 mg/dL (8.5-10.1); Chloride 104 mmol/L (98-107); Creatinine, Serum 0.41 mg/dL (0.55-1.02); EST Glomerular Filtration Rate 171 mL/min (>60); Est Glom Filt Rate - Afr Amer 207 mL/min (>60); Estimated Creatinine Clearance 150.77 ml/min; Glucose 108 mg/dL (74-106); Potassium 3.7 mmol/L (3.5-5.1); Sodium Level 136 mmol/L (136-145); Troponin-I HS 1083 pg/mL (3.0-54.0)
--- NOTE | 2024-09-12 08:50 | RAD_ITS ---
PROCEDURE: CHEST 1 VIEW REASON FOR EXAM: Acute stroke suspected. TECHNIQUE: Single frontal image including the chest and abdomen. COMPARISON: Chest x-ray of 07/07/2024. RAD/Chest 1 View IMPRESSION: Lungs are somewhat hypoinflated, but appear clear of acute disease. No pleural effusion or pneumothorax is noted. The cardiomediastinal silhouette is unchanged, without evidence of cardiomegaly . No acute osseous process is noted. Reading Location: [id number]
[2024-09-12 08:56] LABS: Color, Urine Yellow (Yellow); Glucose, Dipstick Normal (Normal); Ketone-Dipstick Negative (Negative); Leukocyte Esterase-Dipstick Negative /ul (Negative); Nitrite-Dipstick Negative (Negative); Occult Blood-Urine 25 /ul (Negative); Protein-Dipstick Negative (Negative); Specific Gravity, Urine 1.005 (1.002-1.030); Urine Bilirubin Dipstick Negative (Negative); Urine Clarity Clear (Clear); Urine Urobilinogen 1 mg/dl (Normal)
[2024-09-12] MEDS: 0.9% Normal Saline (1000mL) 1,000 ML 100 ML IV (08:57)
[2024-09-12 09:17] LABS: Red Blood Cells-Urine 0-5 SEEN /hpf (0-5); Squamous Epithelial Cells - UA 0-5 SEEN /hpf (5-10); White Blood Cells 0-5 SEEN /hpf (0-5)
[2024-09-12 09:18] LABS: Bacteria 1+ /hpf (None Seen)
--- NOTE | 2024-09-12 09:19 | ED.RN ---
report given to transfer center
[2024-09-12 09:24] LABS: Platelet Estimate SLT DEC (ADEQ); Polychromasia 1+
--- NOTE | 2024-09-12 09:30 | CM.ED ---
Social work Reason for referral: stroke alert This SW responded upon arrival to shift to patient's stroke alert. Patient was in imaging at the time. Patient's cousin and HCPOA, Renetta Smart, was present upon SW arrival to patient's room. This SW introduced self and role at [facility]. Patient was lying in bed and was unable to speak. Renetta stated patient had a confirmed stroke and would be transported to [facility] for further treatment; Renetta confirmed having directions to [facility]. Renetta stated patient's HCPOA paperwork was completed recently at the [facility]. Renetta stated patient moved to [place] in April 2024 to be closer to Renetta. Patient reportedly has 3 sisters and a stepson who live in [place]. Patient's stepmother still lives in [place]. Renetta denied needing to add any of these individuals to patient's emergency contact list. Renetta stated patient last spoke with Renetta last evening, 09/11/24, around 1700. Renetta noticed something was off when driving by patient's house this morning and noticing no movement; patient is reportedly usually up around 0500 every day. Rneetta stated not knowing if calling for a squad was the right decision, but Renetta stated feeling as if something was wrong. Per Renetta, patient applied for Medicaid on 09/05/24 and has a pending Medicaid number: [id number]. While talking[facility]. Renetta stated needing to go to patient's home to drop patient's dog off at Renetta's house as well as get patient's phone. Renetta was reminded to drive safely and take care of self during this stressful time. Much active listening and supportive presence provided. Alia Lucas, [employer], [employer]
== END 2024-09-12 09:20 | disposition short-term general hospital (02) ==
PROVIDERS: Emergency Provider Surgery; PCP Internal Medicine; Visit Provider Surgery
DX: I26.99 Other pulmonary embolism without acute cor pulmonale (principal); C79.51 Secondary malignant neoplasm of bone; C34.90 Malignant neoplasm of unspecified part of unspecified bronchus or lung; I48.91 Unspecified atrial fibrillation; I21.4 Non-ST elevation (NSTEMI) myocardial infarction; G47.33 Obstructive sleep apnea (adult) (pediatric); J93.9 Pneumothorax, unspecified; D69.6 Thrombocytopenia, unspecified; D64.9 Anemia, unspecified; Z90.49 Acquired absence of other specified parts of digestive tract; Z90.710 Acquired absence of both cervix and uterus; Z98.84 Bariatric surgery status; F17.210 Nicotine dependence, cigarettes, uncomplicated
CPT/HCPCS: 51702; 70450; 70496; 70498; 71045; 71275; 80048; 81001; 84484; 85025; 85610; 85730; 93005; 99285; Q9967; A4216